=== PATIENT | male | born 1980 | race Caucasian/White ===

== ENCOUNTER 2021-11-10 21:27 | Emergency (ER) | payer SELFPAY ==
[~2021-11-10] VITALS: Ht 175.3 cm; Wt 90.9 kg
[2021-11-11] MEDS ORDERED: NORCO 325 MG-51 TAB PO (00:48)
[2021-11-11] MEDS ORDERED: MOTRIN 800800 MG/TAB PO (00:48)
[2021-11-11] MEDS ORDERED: FLEXERIL 1010 MG/TAB PO (00:48)
[2021-11-11] MEDS ORDERED: WALKER MC (00:58)
[2021-11-11 01:29] VITALS: BP 144/81; PULSE 88; TEMP 98.4
== END 2021-11-11 01:29 | disposition home or self-care (01) ==
LOC: COL.ER 21:27
DX: M54.16 Radiculopathy, lumbar region (principal); F17.210 Nicotine dependence, cigarettes, uncomplicated; Z88.5 Allergy status to narcotic agent
CPT/HCPCS: J1885

== ENCOUNTER → 2021-11-12 | Outpatient (CLI) | payer SELFPAY ==
[~2021-11-12] MED LIST: FLEXERIL 1010 MG/TAB PO; MOTRIN 800800 MG/TAB PO; NORCO 325 MG-51 TAB PO; WALKER MC
== END ==
LOC: COL.RAD 08:49
DX: M47.816 Spondylosis without myelopathy or radiculopathy, lumbar region (principal); M47.817 Spondylosis without myelopathy or radiculopathy, lumbosacral region

== ENCOUNTER 2022-07-17 11:23 | Emergency (ER) | payer SELFPAY ==
[~2022-07-17] VITALS: Ht 177.8 cm; Wt 100.0 kg
[2022-07-17 11:27] VITALS: BP 144/97; TEMP 99.4
[2022-07-17] MEDS ORDERED: DESYREL 100MG100 MG PO (11:36)
[2022-07-17] MEDS ORDERED: LEXAPRO20 MG PO (11:36)
[2022-07-17] MEDS ORDERED: DOXYCYCLINE 10100 MG PO (11:50)
[2022-07-17 11:58] VITALS: PULSE 80
== END 2022-07-17 11:58 | disposition home or self-care (01) ==
LOC: COL.ER 11:23
DX: S60.561A Insect bite (nonvenomous) of right hand, initial encounter (principal); F17.210 Nicotine dependence, cigarettes, uncomplicated; W57.XXXA Bitten or stung by nonvenomous insect and other nonvenomous arthropods, initial encounter

== ENCOUNTER 2022-09-04 16:43 | Emergency (ER) | payer OTHER ==
[~2022-09-04] VITALS: Ht 177.8 cm; Wt 100.0 kg
[~2022-09-04 16:43] MED LIST changes: +DESYREL 100MG100 MG PO; +DOXYCYCLINE 10100 MG PO; +LEXAPRO20 MG PO
[2022-09-04 17:00] VITALS: BP 156/96; TEMP 98
[2022-09-04 18:57] VITALS: PULSE 85
== END 2022-09-04 18:57 | disposition home or self-care (01) ==
LOC: COL.ER 16:43
DX: M76.71 Peroneal tendinitis, right leg (principal); X50.0XXA Overexertion from strenuous movement or load, initial encounter

== ENCOUNTER 2022-12-16 05:10 | Emergency (ER) | payer SELFPAY ==
[~2022-12-16] VITALS: Ht 177.8 cm; Wt 97.7 kg
[2022-12-16 05:13] VITALS: BP 141/95; TEMP 97.9
[2022-12-16] MEDS ORDERED: ZOFRAN ODT4 MG PO (06:09)
[2022-12-16 06:45] VITALS: PULSE 85
== END 2022-12-16 06:45 | disposition home or self-care (01) ==
LOC: COL.ER 05:10
DX: B34.9 Viral infection, unspecified (principal); R11.2 Nausea with vomiting, unspecified; R19.7 Diarrhea, unspecified; R05.9 Cough, unspecified; R51.9 Headache, unspecified; R50.9 Fever, unspecified; R06.02 Shortness of breath; R53.83 Other fatigue; F17.210 Nicotine dependence, cigarettes, uncomplicated; Z20.822 Contact with and (suspected) exposure to COVID-19